=== PATIENT | female | born 1960 | race Two or more races ===

== ENCOUNTER 2024-05-12 15:01 | Outpatient (OUT) | payer OTHER, SELFPAY ==
--- NOTE | 2024-05-12 15:14 | XR_ITS ---
The [address] [address] Patient Name: FERNANDO CHAUHAN MRN: [id number] date: 1960 Sex: F Assigned Patient Location: [facility] Current Patient Location: Accession/Order Number: [id number] Exam Date: 05/12/2024 15:18 Report Date: 05/15/2024 05:22 At the request of: CORI BROWNE Procedure: XR chest 2V EXAMINATION: XR chest 2V HISTORY: Chronic Cough COMPARISON: No relevant comparison available. FINDINGS: LUNGS: There are mild opacities within medial right lung base and within lateral left lung base partially obscuring the left diaphragm margin and lateral costal phrenic angle. VASCULATURE: No increased pulmonary vasculature. PLEURA: No pneumothorax, effusion, or pleural thickening. CARDIAC: No cardiomegaly or cardiac silhouette abnormality. MEDIASTINUM: No visible mass or adenopathy. BONES: No fracture or visible bone lesion. OTHER: Negative. XR/XR chest 2V IMPRESSION: 1. Mild bibasilar infiltrates versus atelectasis. Electronically authenticated by: AMBER GARCIA Date: 05/15/2024 05:22
== END 2024-05-12 15:02 | disposition home or self-care (01) ==
LOC: RAD 15:05
PROVIDERS: PCP Nurse Practitioner; Visit Provider Nurse Practitioner
DX: R05.3 Chronic cough (principal)
CPT/HCPCS: 71046